=== PATIENT | male | born 1995 | race Two or more races ===

== ENCOUNTER 2017-06-08 18:39 | Emergency (ER) | payer SELFPAY ==
[2017-06-08 19:08] VITALS: BP 130/75
[2017-06-08] MEDS ORDERED: ALBUTEROL SULFATE HFA (90 MCG/PUFF) 8 GM MDI (1 MDI/ER DISP) IH PRN (19:24)
[2017-06-08] MEDS ORDERED: ALBUTEROL SULFATE 0.083% NEB 2.5 MG/3 ML AMPUL NEB ONE (19:25)
--- NOTE | 2017-06-08 19:25 | ER Document Report ---
ED ENT - General Chief Complaint: Ear Pain Stated Complaint: RIGHT EAR PAIN,COUGH,HEADACHE Time Seen by Provider: 06/08/17 19:10 Mode of Arrival: Ambulatory Information source: Patient Notes: Patient is a 21-year-old male who presents to the ER today for 1 day of right ear pain after 1 week and a half of runny nose, cough and fever and chills. Patient does not know what his fever has been as he has not taken his temperature. He is an asthmatic and states that he has been wheezing. He does not have any inhalers at home. TRAVEL OUTSIDE OF THE [place] IN LAST 30 DAYS: No - Related Data Allergies/Adverse Reactions: budesonide [From Pulmicort] Allergy (Verified 06/08/17 18:40) Past Medical History - General Information source: Patient - Social History Smoking Status: Never Smoker Family History: Reviewed & Not Pertinent Review of Systems - Review of Systems Constitutional: See HPI EENT: See HPI Cardiovascular: No symptoms reported Respiratory: See HPI Gastrointestinal: No symptoms reported Genitourinary: No symptoms reported Male Genitourinary: No symptoms reported Musculoskeletal: No symptoms reported Skin: No symptoms reported Hematologic/Lymphatic: No symptoms reported Neurological/Psychological: No symptoms reported Physical Exam - Vital signs Vitals: Temp Pulse Resp BP Pulse Ox 100.2 F 97 18 130/75 H 100 06/08/17 19:06 06/08/17 19:06 06/08/17 19:06 06/08/17 19:06 06/08/17 19:06 - Notes Notes: PHYSICAL EXAMINATION: GENERAL: Mildly ill-appearing, but in no acute distress. HEAD: Atraumatic, normocephalic. EYES: Pupils equal round and reactive to light, extraocular movements intact, sclera anicteric, conjunctiva are normal. ENT: ear canals without erythema or foreign body, right TM erythematous and dull with purulence behind, left TM pearly darling with good bony landmarks, nares with mucoid discharge, t, oropharynx clear without exudates. Moist mucous membranes. NECK: Normal range of motion, supple without lymphadenopathy LUNGS: Coughing, otherwise CTAB and equal. No wheezes rales or rhonchi. HEART: Regular rate and rhythm without murmurs ABDOMEN: Soft, no tenderness. No guarding, no rebound BACK: no vertebral tenderness, normal ROM GI/: no CVA tenderness EXTREMITIES: Normal range of motion, no pitting edema. No cyanosis. NEUROLOGICAL: Cranial nerves grossly intact. Normal sensory/motor exams. PSYCH: Normal mood, normal affect. SKIN: Warm, Dry, normal turgor, no rashes or lesions noted Course - Re-evaluation Re-evalutation: 06/08/17 19:39 I will send patient home with an inhaler from the emergency department. Also treat his ear infection with antibiotics. - Vital Signs Vital signs: Temp Pulse Resp BP Pulse Ox 100.2 F 97 18 130/75 H 100 06/08/17 19:06 06/08/17 19:06 06/08/17 19:06 06/08/17 19:06 06/08/17 19:06 Discharge - Discharge Clinical Impression: Bronchitis Right otitis media Qualifiers: Otitis media type: unspecified Qualified Code(s): H66.91 - Otitis media, unspecified, right ear Sinusitis Qualifiers: Sinusitis location: other Chronicity: subacute Qualified Code(s): J01.80 - Other acute sinusitis Condition: Stable Disposition: HOME, SELF-CARE Additional Instructions: Return immediately for any new or worsening symptoms. Follow up with primary care provider, call tomorrow to make followup appointment. Prescriptions: Amoxicillin 500 mg PO TID #30 capsule Cetirizine HCl [Zyrtec 10 mg Tablet] 1 tab PO DAILY #30 tablet Guaifenesin/D-Methorphan Hb [Robitussin Dm S-F Cough Syrup] 5 ml PO Q6 PRN #118 ml PRN Reason:
== END 2017-06-08 20:25 | disposition home or self-care (01) ==
LOC: ER 18:39
DX: H66.91 Otitis media, unspecified, right ear (principal); J01.90 Acute sinusitis, unspecified; J45.909 Unspecified asthma, uncomplicated; H92.01 Otalgia, right ear; R05 Cough; R50.9 Fever, unspecified; Z88.8 Allergy status to other drugs, medicaments and biological substances
CPT/HCPCS: 94640; 99282; J3490